=== PATIENT | female | born 1950 | race Two or more races ===

== ENCOUNTER 2021-03-14 17:44 | Emergency (ER) | payer MEDICARE, OTHER ==
[~2021-03-14] VITALS: Ht 152.4 cm; Wt 47.6 kg
[2021-03-14 17:44] VITALS: BP 151/91
== END 2021-03-15 00:31 | disposition left against medical advice (07) ==
LOC: ER 17:44
DX: R07.9 Chest pain, unspecified (principal); Z53.21 Procedure and treatment not carried out due to patient leaving prior to being seen by health care provider

== ENCOUNTER 2022-11-30 17:52 | Emergency (ER) | payer MEDICARE ==
[~2022-11-30] VITALS: Ht 152.4 cm; Wt 47.7 kg
[2022-11-30 17:57] VITALS: BP 161/87; PULSE 84; RESP 20; O2SAT 98
== END 2022-11-30 23:45 | disposition left against medical advice (07) ==
LOC: EDBD 17:52 → ER 17:52
DX: R13.10 Dysphagia, unspecified (principal); R19.7 Diarrhea, unspecified; Z53.21 Procedure and treatment not carried out due to patient leaving prior to being seen by health care provider